=== PATIENT | male | born 1980 | race Two or more races ===

== ENCOUNTER 2018-04-10 12:47 | Emergency (ER) | payer MEDICAID ==
[~2018-04-10] VITALS: Ht 170.2 cm; Wt 79.4 kg
[2018-04-10] MEDS ORDERED: HYDROcodone-ACET 5/325MG TAB PO ONE (13:45)
[2018-04-10] MEDS ORDERED: diphenhdrAMINE HCL 25 MG CAP PO ONE (14:00)
[2018-04-10] MEDS ORDERED: IBUPROFEN 800 MG TAB PO ONE (14:00)
[2018-04-10 15:08] VITALS: BP 128/88
== END 2018-04-10 15:24 | disposition home or self-care (01) ==
LOC: ER 12:50
DX: M25.532 Pain in left wrist (principal); F12.90 Cannabis use, unspecified, uncomplicated; F15.90 Other stimulant use, unspecified, uncomplicated; Z88.8 Allergy status to other drugs, medicaments and biological substances
CPT/HCPCS: 73110

== ENCOUNTER 2020-12-19 20:30 | Emergency (ER) | payer MEDICAID ==
[~2020-12-19] VITALS: Ht 170.2 cm; Wt 81.6 kg
[2020-12-19 20:31] VITALS: BP 115/70
== END 2020-12-19 21:18 | disposition left against medical advice (07) ==
LOC: ER 20:30
DX: M54.50 Low back pain, unspecified (principal); Z53.21 Procedure and treatment not carried out due to patient leaving prior to being seen by health care provider